=== PATIENT | female | born 1975 | race Caucasian/White ===

== ENCOUNTER 2018-05-08 19:00 | Inpatient (IN) | payer BC, MEDICAID, SELFPAY ==
[2018-05-08] MEDS ORDERED: IPRATROPIUM/ALBUTEROL (0.5MG/3MG) NEB INH ONE (19:10)
[2018-05-08] MEDS ORDERED: ACETAMINOPHEN 500 MG TABLET PO ONE (19:12)
[2018-05-08] MEDS ORDERED: 0.9 % SODIUM CHLORIDE 1000ML 1,000 ML IV ONE (19:14)
--- NOTE | 2018-05-08 19:17 | Emergency Department Record ---
History of Present Illness - General Chief Complaint: Shortness of breath Stated Complaint: KEN/COUGH Time Seen by Provider: 05/08/18 19:08 Source: Patient, Family Mode of Arrival: Ambulatory Limitations: No limitations - History of Present Illness Initial Comments: 42 yo female presents with a cough for about one week. The symptoms worsened starting on Thursday. She is having dyspnea with a non productive cough. Her TMax at home was 103. She feels tired and week. She has a prior history of asthma. She is a non smoker. She states she has not tried her inhalers at home to this point. No vomiting or diarrhea. No rash. MD Complaint: Cough, Shortness of breath -: Days(s) Severity: Moderate Quality: Aching Consistency: Constant Improves With: Nothing Worsens With: Coughing, Exertion Known History Of: Asthma Context: Recent URI Associated Symptoms: Cough Treatments Prior to Arrival: None - Related Data Home Oxygen Therapy: No Home Medications Medication Instructions Recorded Confirmed Last Taken Albuterol Sulfate [Proair Hfa] 1 puff INH ASDIR PRN 05/08/18 05/08/18 Unknown Amitriptyline HCl 150 mg PO DAILY 05/08/18 05/08/18 Unknown Duloxetine HCl [Cymbalta] 30 mg PO DAILY 05/08/18 05/08/18 Unknown Epinephrine [Epipen] 1 each SQ ASDIR PRN 05/08/18 05/08/18 Unknown Fexofenadine HCl [Lesley Allergy] 180 mg PO DAILY 05/08/18 05/08/18 Unknown Mometasone/Formoterol [Dulera 200 13 gm IH BID 05/08/18 05/08/18 Unknown Mcg/5 Mcg Inhaler] Montelukast Sodium [Singulair] 10 mg PO QHS 05/08/18 05/08/18 Unknown Multivitamin [Daily Multiple 1 each PO DAILY 05/08/18 05/08/18 Unknown Vitamin] Omeprazole Magnesium [Prilosec Otc] 20 mg PO DAILY 05/08/18 05/08/18 Unknown Polyethylene Glycol 3350 [Miralax] 17 gm PO DAILY 05/08/18 05/08/18 Unknown Topiramate [Topamax] 100 mg PO BID 05/08/18 05/08/18 Unknown Allergies Allergy/AdvReac Type Severity Reaction Status Date / Time Aminoglycosides Allergy Unknown Unverified 08/01/13 10:05 aspirin Allergy Unknown Unverified 08/01/13 10:05 codeine Allergy Unknown Unverified 08/01/13 10:05 Corticosteroids Allergy Unknown Unverified 08/01/13 10:05 (Glucocorticoids) hydrocortisone Allergy Unknown Unverified 08/01/13 10:05 loperamide Allergy Unknown Unverified 08/01/13 10:05 meperidine Allergy Unknown Unverified 08/01/13 10:05 naloxone Allergy Unknown Unverified 08/01/13 10:05 neomycin Allergy Unknown Unverified 08/01/13 10:05 NSAIDS (Non-Steroidal Allergy Unknown Unverified 08/01/13 10:05 Anti-Inflamma ofloxacin Allergy Unknown Unverified 08/01/13 10:05 Opioids-Meperidine and Allergy Unknown Unverified 08/01/13 10:05 Related polymyxin B Allergy Unknown Unverified 08/01/13 10:05 propoxyphene Allergy Unknown Unverified 08/01/13 10:05 Pyrazoles Allergy Unknown Unverified 08/01/13 10:05 Quinolones Allergy Unknown Unverified 08/01/13 10:05 Salicylates * Allergy Unknown Unverified 08/01/13 10:05 Sulfa (Sulfonamide Allergy Unknown Unverified 08/01/13 10:05 Antibiotics) sulfacetamide Allergy Unknown Unverified 08/01/13 10:05 tramadol Allergy Unknown Unverified 08/01/13 10:05 Review of Systems Constitutional: Reports: Chills, Fever, Malaise, Weakness Eyes: Reports: Eye discharge ENT: Reports: Congestion Respiratory: Reports: Cough, Dyspnea, Wheezes Cardiovascular: Denies: Chest pain, Palpitations, Syncope Endocrine: Reports: Fatigue Gastrointestinal: Denies: Abdominal pain, Diarrhea, Nausea, Vomiting Genitourinary: Denies: Dysuria Musculoskeletal: Denies: Arthralgia, Back pain, Myalgia Skin: Denies: Bruising, Change in color, Rash Neurological: Reports: Weakness. Denies: Headache Psychiatric: Denies: Anxiety Hematological/Lymphatic: Denies: Easy bleeding, Easy bruising, Swollen glands Physical Exam - General General Appearance: Alert, Oriented x3, Cooperative, Other (Appears frail, conversational dyspnea walking in the ED) Limitations: No limitations - Head Head exam: Atraumatic, Normal inspection - Eye Eye exam: Normal appearance, PERRL. negative: Conjunctival injection, Scleral icterus - ENT ENT exam: Normal exam, Mucous membranes moist, Normal orophraynx Ear exam: Normal external inspection Nasal Exam: Normal inspection Mouth exam: Normal external inspection Teeth exam: Normal inspection Throat exam: Normal inspection - Neck Neck exam: Normal inspection - Respiratory Respiratory exam: Accessory muscle use, Decreased breath sounds, Prolonged expiratory, Rhonchi, Wheezes. negative: Normal lung sounds bilaterally, Chest wall tenderness, Respiratory distress - Cardiovascular Cardiovascular Exam: Regular rate, Normal rhythm, Normal heart sounds Peripheral Pulses: 2+: Radial (R), Radial (L) - GI/Abdominal GI/Abdominal exam: Soft. negative: Tenderness - Rectal Rectal exam: Deferred - exam: Deferred - Extremities Extremities exam: Normal inspection - Back Back exam: Denies: CVA tenderness (R), CVA tenderness (L) - Neurological Neurological exam: Alert, Oriented X3 - Psychiatric Psychiatric exam: Normal affect, Normal mood. negative: Agitated, Anxious - Skin Skin exam: Dry, Intact, Normal color, Warm Course - Reevaluation(s) Reevaluation #1: The patient was initially found to have hypoxia, fever, and tachycardia Her room air oxygen level of 80% increased to 94% with 2 liters NC. 05/08/18 19:19 05/08/18 19:43 EKG #1: 19:23 Rate: 106 Rhythm: sinus tach [place]: R Intervals: Qtc 500 ST segments: No acute process Prior: No changes 09/200505/08/18 19:46 The labs were reviewed. CBC: No acute changes CMP: Sodium 132, K is 3.1, HCO3 22, CR 1.3, Lactic 2.8, AST 229, ALT 170, Alk Phos 130 Influenza Negative 05/08/18 19:48 05/08/18 20:57 The chest XR was reviewed. Central bilateral infiltrates. Likely pneumonia. Other concerns includes interstitial edema. Rocephin was given for likely pneumonia. BNP added. Troponin is normal 05/08/18 21:30 The case was discussed with Xin Patterson [employer]ATE [employer] The patient will be admitted on breathing treatments, antibiotics, and recheck labs in the AM Her HR, BP, Temp all improved and stable for admission 05/08/18 23:29 BNP is normal Medical Decision Making - Lab Data Result diagrams: 05/08/18 19:20 05/08/18 19:20 Disposition Disposition: Admit Clinical Impression: Hypoxia Pneumonia Qualifiers: Pneumonia type: due to unspecified organism Laterality: bilateral Lung location : unspecified part of lung Qualified Code(s): J18.9 - Pneumonia, unspecified organism Disposition: Still a Patient at [facility] Decision to Admit: Admit from ER Decision to Admit Date: 05/08/18 Decision to Admit Time: 20:59 Condition: (2) Stable Time of Disposition: 20:59 Quality - Quality Measures Quality Measures: N/A - Blood Pressure Screening Does Patient Have Any of the Following: No Blood Pressure Classification: Normal BP Reading Systolic Measurement: 97 Diastolic Measurement: 60 Screening for High Blood Pressure: < Normal BP, F/U Not Required > [G8783]
[2018-05-08 19:26] LABS: BASO % 0.2 % (0-6); HEMATOCRIT 42.2 % (35.0-47.0); HEMOGLOBIN 13.7 gm/dl (11.6-16.0); LYMPH % 8.6 % (16-45); MEAN CELL VOLUME 87.6 fl (81-97); MEAN CORPUSCULAR HEMOGLOBIN 28.4 pg (27-33); MEAN CORPUSCULAR HGB CONC 32.5 g/dl (32-36); MEAN PLATELET VOLUME 8.5 fl (7.4-10.4); MONO % 3.4 % (0-9); PLATELET COUNT 388 K/uL (130-400); RED BLOOD COUNT 4.82 M/uL (3.80-5.40); RED CELL DISTRIBUTION WIDTH 14.8 % (11.5-14.5); WHITE BLOOD COUNT W/O DIFF 6.4 K/uL (4.2-12.2)
[2018-05-08 19:39] LABS: BLOOD UREA NITROGEN 19 mg/dL (6-20); CREATININE 1.3 mg/dL (0.5-0.9); EST GLOMERULAR FILTRATION RATE 48 mL/min; TOTAL PROTEIN 8.2 g/dL (6.6-8.7)
[2018-05-08 19:42] LABS: LACTIC ACID 2.8 mmol/L (0.5-2.2)
[2018-05-08 19:43] LABS: GLUCOSE,RANDOM 133 mg/dL (74-109)
[2018-05-08 19:44] LABS: ALBUMIN 4.1 g/dL (4.0-5.0); ALKALINE PHOSPHATASE 130 U/L (45-87); ALT/SGPT 170 U/L (<33); AST/SGOT 229 U/L (10.0-35.0); INFLUENZA A NEGATIVE (NEGATIVE); INFLUENZA B NEGATIVE (NEGATIVE)
[2018-05-08 20:01] LABS: ANISOCYTOSIS 1+; PLATELET ESTIMATE NORMAL (NORMAL)
[2018-05-08] MEDS ORDERED: CEFTRIAXONE SODIUM 2 GM in 0.9 % SODIUM CHLORIDE 100ML 100 ML IVPB ONE (20:27)
[2018-05-08] MEDS ORDERED: AZITHROMYCIN 500 MG TABLET PO ONE (20:27)
[2018-05-08] MEDS ORDERED: MONTELUKAST SODIUM 10MG TABLET PO SCH (22:04)
[2018-05-08] MEDS ORDERED: ALBUTEROL SULFATE (0.083%) 2.5 MG/3 ML NEB INH PRN (22:04)
[2018-05-08] MEDS ORDERED: CEFTRIAXONE SODIUM 1 GM in 0.9 % SODIUM CHLORIDE 100ML 100 ML IVPB SCH (22:04)
[2018-05-08] MEDS: SOD CHLOR 0.9% WITH KCL 40MEQ 40 MEQ/1,000 ML IV.SOLN IV ONE (22:25)
[2018-05-08] MEDS: TOPIRAMATE 100MG TABLET PO SCH (23:03)
[2018-05-08] MEDS: BENZONATATE 100 MG CAPSULE PO PRN (23:03)
[2018-05-09] MEDS: ACETAMINOPHEN 500 MG TABLET PO PRN ×3 (00:39→11:01)
[2018-05-09] MEDS: BENZONATATE 100 MG CAPSULE PO PRN ×2 (06:45→11:01)
[2018-05-09] MEDS ORDERED: PANTOPRAZOLE SODIUM 40 MG TABLET PO SCH (07:00)
[2018-05-09 07:44] LABS: HEMATOCRIT 39.3 % (35.0-47.0); HEMOGLOBIN 12.5 gm/dl (11.6-16.0); MEAN CELL VOLUME 88.5 fl (81-97); MEAN CORPUSCULAR HEMOGLOBIN 28.2 pg (27-33); MEAN CORPUSCULAR HGB CONC 31.8 g/dl (32-36); MEAN PLATELET VOLUME 8.6 fl (7.4-10.4); PLATELET COUNT 314 K/uL (130-400); RED BLOOD COUNT 4.44 M/uL (3.80-5.40); RED CELL DISTRIBUTION WIDTH 14.7 % (11.5-14.5); WHITE BLOOD COUNT W/O DIFF 5.7 K/uL (4.2-12.2)
[2018-05-09 07:55] LABS: PLATELET ESTIMATE NORMAL (NORMAL)
[2018-05-09 08:04] LABS: ALBUMIN 3.4 g/dL (4.0-5.0); ALKALINE PHOSPHATASE 104 U/L (45-87); ALT/SGPT 126 U/L (<33); AST/SGOT 166 U/L (10.0-35.0); BLOOD UREA NITROGEN 15 mg/dL (6-20); EST GLOMERULAR FILTRATION RATE > 60 mL/min; GLUCOSE,RANDOM 84 mg/dL (74-109); TOTAL PROTEIN 6.7 g/dL (6.6-8.7)
[2018-05-09] MEDS ORDERED: METHYLPREDNISOLONE PF 125MG/VIAL IM ONE (09:04)
[2018-05-09] MEDS: SOD CHLOR 0.9% WITH KCL 40MEQ 40 MEQ/1,000 ML IV.SOLN IV ONE (09:06)
[2018-05-09] MEDS: CEFTRIAXONE SODIUM 1 GM in 0.9 % SODIUM CHLORIDE 100ML 100 ML IVPB SCH ×2 (09:14→20:55)
[2018-05-09] MEDS: TOPIRAMATE 100MG TABLET PO SCH ×2 (09:14→21:34)
--- NOTE | 2018-05-09 09:56 | History & Physical ---
History of Present Illness - Date of Service Date of Service for History & Physical: 05/09/18 - History of Present Illness Admitting Diagnosis: Pneumonia History of Present Illness: 42 year old female patient presented to ED with cough and fatigue x 1 week. Patient stated symptoms began worsening and she began noting dyspnea with a productive cough. Reports her max temperature at home was 103. Patient has a history of asthma, but has not tried any inhalers at home to help relieve symptoms. Patient denied any abdominal pain, nausea, vomiting, diarrhea, rash, or chest pain. Patient's past medical history includes migraines, asthma, fibromyalgia, and benign tremors. Patient also had a fall in September 2017 that resulted in an intracranial hemorrhage, for which she was treated at [facility], with no resulting deficits. PCP: Dr. Jae Hines ED Course: Room air pulse ox 80%, increased to 94% with 2L oxygen via NC EKG: Rate 106, sinus tach CBC: no acute changes Sodium 132, K 3.1, HCO3 22, Cr 1.3, lactic 2.8, AST 229, ALT 170, Alk phos 130 Troponin negative, BNP unremarkable Blood cultures pending Influenza and strep negative Chest x-ray: Central bilateral infiltrates, likely pneumonia Rocephin 2gm IV, Zithromax 500mg 05/09/18: A&O x 4, resting comfortably in bed. Patient has mild shortness of breath noted with conversation, remains on 2L NC. Will continue with Duoneb, Zithromax, and Rocephin, adding in solumedrol given asthma history. Travel Screening - Travel/Exposure Within Last 30 Days Have you traveled within the last 30 days?: No - Travel/Exposure Within Last Year Have you traveled outside the [place] in the last year?: No - Additonal Travel Details Have you been exposed to anyone with a communicable illness?: No - Travel Symptoms Symptom Screening: Fever (Subjective), Weakness, Fatigue, Lack of Appetite Review of Systems Reviewed: No additional complaints except as noted below Constitutional: Reports: Chills, Fever, Malaise, Weakness Eyes: Reports: Eye discharge ENT: Reports: Congestion Respiratory: Reports: Cough, Dyspnea, Wheezes Cardiovascular: Denies: Chest pain, Palpitations, Syncope Endocrine: Reports: Fatigue Gastrointestinal: Denies: Abdominal pain, Diarrhea, Nausea, Vomiting Genitourinary: Denies: Dysuria Musculoskeletal: Denies: Arthralgia, Back pain, Myalgia Skin: Denies: Bruising, Change in color, Rash Neurological: Reports: Weakness. Denies: Headache Psychiatric: Denies: Anxiety Hematological/Lymphatic: Denies: Easy bleeding, Easy bruising, Swollen glands Past Medical History - SOCIAL HISTORY Smoking Status: Never smoker Alcohol Use: None Drug Use: None - RESPIRATORY Hx Respiratory Disorders: Yes Hx Asthma: Yes - CARDIOVASCULAR Hx Cardio Disorders: Yes Hx Irregular Heartbeat: Yes Hx Palpitations: Yes Comment:: past falls ? 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 - PSYCH Hx Psych Problems: Yes Hx Anxiety: Yes - HEMATOLOGY/ONCOLOGY Hx Hematology/Oncology Disorders: Yes Comment:: hx thrombocythemia Family Medical History Any Significant Family History?: Yes Hx Stroke: Mother H&P Meds/Allergies - Allergies Allergies: Allergies Allergy/AdvReac Type Severity Reaction Status Date / Time Aminoglycosides Allergy Unknown Unverified 08/01/13 10:05 aspirin Allergy Unknown Unverified 08/01/13 10:05 codeine Allergy Unknown Unverified 08/01/13 10:05 Corticosteroids Allergy Unknown Unverified 08/01/13 10:05 (Glucocorticoids) hydrocortisone Allergy Unknown Unverified 08/01/13 10:05 loperamide Allergy Unknown Unverified 08/01/13 10:05 meperidine Allergy Unknown Unverified 08/01/13 10:05 naloxone Allergy Unknown Unverified 08/01/13 10:05 neomycin Allergy Unknown Unverified 08/01/13 10:05 NSAIDS (Non-Steroidal Allergy Unknown Unverified 08/01/13 10:05 Anti-Inflamma ofloxacin Allergy Unknown Unverified 08/01/13 10:05 Opioids-Meperidine and Allergy Unknown Unverified 08/01/13 10:05 Related polymyxin B Allergy Unknown Unverified 08/01/13 10:05 propoxyphene Allergy Unknown Unverified 08/01/13 10:05 Pyrazoles Allergy Unknown Unverified 08/01/13 10:05 Quinolones Allergy Unknown Unverified 08/01/13 10:05 Salicylates * Allergy Unknown Unverified 08/01/13 10:05 Sulfa (Sulfonamide Allergy Unknown Unverified 08/01/13 10:05 Antibiotics) sulfacetamide Allergy Unknown Unverified 08/01/13 10:05 tramadol Allergy Unknown Unverified 08/01/13 10:05 - Home Medications Home Medications Medication Instructions Recorded Confirmed Last Taken Albuterol Sulfate [Proair Hfa] 1 puff INH ASDIR PRN 05/08/18 05/08/18 Unknown Amitriptyline HCl 150 mg PO DAILY 05/08/18 05/08/18 Unknown Duloxetine HCl [Cymbalta] 30 mg PO DAILY 05/08/18 05/08/18 Unknown Epinephrine [Epipen] 1 each SQ ASDIR PRN 05/08/18 05/08/18 Unknown Fexofenadine HCl [Lesley Allergy] 180 mg PO DAILY 05/08/18 05/08/18 Unknown Mometasone/Formoterol [Dulera 200 13 gm IH BID 05/08/18 05/08/18 Unknown Mcg/5 Mcg Inhaler] Montelukast Sodium [Singulair] 10 mg PO QHS 05/08/18 05/08/18 Unknown Multivitamin [Daily Multiple 1 each PO DAILY 05/08/18 05/08/18 Unknown Vitamin] Omeprazole Magnesium [Prilosec Otc] 20 mg PO DAILY 05/08/18 05/08/18 Unknown Polyethylene Glycol 3350 [Miralax] 17 gm PO DAILY 05/08/18 05/08/18 Unknown Topiramate [Topamax] 100 mg PO BID 05/08/18 05/08/18 Unknown - Active Medications Active Medications: Current Medications Acetaminophen (Tylenol 500mg Tab) 1,000 mg PO Q6H PRN PRN Reason: PAIN - MILD(1-4)/FEVER Last Admin: 05/09/18 06:45 Dose: 1,000 mg Albuterol Sulfate (Albuterol Sulfate) 2.5 mg INH RESP.Q4H PRN PRN Reason: DIFFICULTY IN BREATHING Albuterol/Ipratropium (Duoneb) 3 ml INH RESP.Q4H PRN PRN Reason: WHEEZING Amitriptyline HCl (Elavil) 150 mg PO QHS [facility] Azithromycin (Zithromax) 500 mg PO QHS [facility] Benzonatate (Tessalon) 100 mg PO TID PRN PRN Reason: COUGH Last Admin: 05/09/18 06:45 Dose: 100 mg Duloxetine HCl (Cymbalta) 30 mg PO DAILY [facility] Last Admin: 05/09/18 09:14 Dose: 30 mg Enoxaparin Sodium (Lovenox) 40 mg SC DAILY [facility] Last Admin: 05/09/18 09:15 Dose: 40 mg Ceftriaxone Sodium 1 gm/ (Sodium Chloride) 100 mls @ 100 mls/hr IVPB 0900,2100 [facility] Stop: 05/14/18 09:01 Last Admin: 05/09/18 09:14 Dose: 100 mls/hr Methylprednisolone Sodium Succinate (Solu-Medrol) 60 mg IVP Q8HR [facility] Montelukast Sodium (Singulair) 10 mg PO DAILY [facility] Last Admin: 05/09/18 09:15 Dose: 10 mg Pantoprazole Sodium (Protonix) 40 mg PO DAILYAC [facility] Last Admin: 05/09/18 06:42 Dose: Not Given Topiramate (Topiramate) 100 mg PO BID [facility] Last Admin: 05/09/18 09:14 Dose: 100 mg Physical Exam - Vital Signs Vital Signs: Vital Signs - Last 24 Hrs Temp Pulse Pulse Resp BP BP BP 05/09/18 06:30 97.7 F 100 H 17 94/63 05/09/18 02:30 99.5 F 90 28 H 91/60 05/09/18 00:30 99.4 F 05/08/18 22:04 99.0 F 99 H 18 89/57 91/57 05/08/18 20:53 99.6 F 98 H 24 101/67 05/08/18 19:20 106 H 24 05/08/18 19:13 103 H 26 H 124/93 05/08/18 19:08 102.8 F H 109 H 24 97/60 Pulse Ox 05/09/18 06:30 94 L 05/09/18 02:30 93 L 05/09/18 00:30 05/08/18 22:04 97 05/08/18 20:53 96 05/08/18 19:20 93 L 05/08/18 19:13 94 L 05/08/18 19:08 80 L - General General Appearance: Alert, Oriented x3, Cooperative, Other (Appears frail) Limitations: No limitations - Head Head exam: Atraumatic, Normal inspection - Eye Eye exam: Normal appearance, PERRL. negative: Conjunctival injection, Scleral icterus - ENT ENT exam: Normal exam, Mucous membranes moist, Normal orophraynx Ear exam: Normal external inspection Nasal Exam: Normal inspection Mouth exam: Normal external inspection Teeth exam: Normal inspection - Neck Neck exam: Normal inspection - Respiratory Respiratory exam: Decreased breath sounds, Prolonged expiratory, Rhonchi, Wheezes, Other (conversational dyspnea). negative: Normal lung sounds bilaterally, Chest wall tenderness, Respiratory distress - Cardiovascular Cardiovascular Exam: Regular rate, Normal rhythm, Normal heart sounds Peripheral Pulses: 2+: Radial (R), Radial (L), Dorsalis Pedis (R), Dorsalis Pedis (L) - GI/Abdominal GI/Abdominal exam: Soft. negative: Tenderness - Rectal Rectal exam: Deferred - exam: Deferred - Extremities Extremities exam: Normal inspection - Back Back exam: Denies: CVA tenderness (R), CVA tenderness (L) - Neurological Neurological exam: Alert, Oriented X3 - Psychiatric Psychiatric exam: Normal affect, Normal mood. negative: Agitated, Anxious - Skin Skin exam: Dry, Intact, Normal color, Warm Results - Labs Result Diagrams: 05/09/18 07:40 05/09/18 07:43 Labs Last 24 Hours: Laboratory Results - last 24 hr 05/08/18 05/08/18 05/08/18 19:20 19:20 19:20 WBC 6.4 RBC 4.82 Hgb 13.7 Hct 42.2 MCV 87.6 MCH 28.4 MCHC 32.5 RDW 14.8 H Plt Count 388 MPV 8.5 Neutrophils % 82.0 H Band Neutrophils % 11.0 H Lymphocytes % 8.6 L Monocytes % 3.4 Eosinophils % 0.0 Basophils % 0.2 Lymphocytes 4.0 L Monocytes 3.0 Platelet Estimate Normal RBC Morphology Anisocytosis 1+ Sodium 132 L Potassium 3.1 L Chloride 92 L Carbon Dioxide 22.0 Anion Gap 18.0 H BUN 19 Creatinine 1.3 H Estimated GFR 48 Random Glucose 133 H Lactic Acid 2.8 H Calcium 8.7 Total Bilirubin 0.20 AST 229 H ALT 170 H Alkaline Phosphatase 130 H Troponin T < 0.010 NT-Pro-B Natriuret Pep Total Protein 8.2 Albumin 4.1 Globulin 4.1 Albumin/Globulin Ratio 1.0 L Procalcitonin Influenza Type A Ag Negative Influenza Type B Ag Negative Group A Strep Screen 05/08/18 05/08/18 05/09/18 19:20 Unknown 07:35 WBC RBC Hgb Hct MCV MCH MCHC RDW Plt Count MPV Neutrophils % Band Neutrophils % Lymphocytes % Monocytes % Eosinophils % Basophils % Lymphocytes Monocytes Platelet Estimate RBC Morphology Anisocytosis Sodium Potassium Chloride Carbon Dioxide Anion Gap BUN Creatinine Estimated GFR Random Glucose Lactic Acid Calcium Total Bilirubin AST ALT Alkaline Phosphatase Troponin T NT-Pro-B Natriuret Pep 45.89 Total Protein Albumin Globulin Albumin/Globulin Ratio Procalcitonin 0.165 Influenza Type A Ag Influenza Type B Ag Group A Strep Screen Negative 05/09/18 05/09/18 05/09/18 07:40 07:40 07:43 WBC 5.7 RBC 4.44 Hgb 12.5 Hct 39.3 MCV 88.5 MCH 28.2 MCHC 31.8 L RDW 14.7 H Plt Count 314 MPV 8.6 Neutrophils % 84.0 H Band Neutrophils % 4.0 Lymphocytes % Monocytes % Eosinophils % Not Reportable Basophils % Not Reportable Lymphocytes 10.0 L Monocytes 2.0 Platelet Estimate Normal RBC Morphology Normal Anisocytosis Sodium Cancelled 137 Potassium Cancelled 3.7 Chloride Cancelled 99 Carbon Dioxide Cancelled 24.0 Anion Gap Cancelled 14.0 BUN Cancelled 15 Creatinine Cancelled 1.0 H Estimated GFR Cancelled > 60 Random Glucose Cancelled 84 Lactic Acid 1.1 Calcium Cancelled 7.7 L Total Bilirubin Cancelled 0.20 AST Cancelled 166 H ALT Cancelled 126 H Alkaline Phosphatase Cancelled 104 H Troponin T NT-Pro-B Natriuret Pep Total Protein Cancelled 6.7 Albumin Cancelled 3.4 L Globulin Cancelled 3.3 Albumin/Globulin Ratio Cancelled 1.0 L Procalcitonin Influenza Type A Ag Influenza Type B Ag Group A Strep Screen VTE H&P Assessment - Risk for VTE Risk for VTE: Yes Risk Level: Moderate Risk Assessment Date: 05/09/18 Risk Assessment Time: 10:50 VTE Orders Placed or Will Be Placed: Yes Plan - Inpatient Certification Inpatient Certification: Admit to inpatient care: Based on my medical assessment, after consideration of patient's risk factors (age, co-morbidities and patient presenting symptoms and acuity), I expect that this patient will remain in the hospital greater than or equal to two midnights and that the services needed warrant inpatient care because: Patient Risk Factors: [pneumonia, history of asthma, low pulse ox] Estimated length of stay: The patient may reasonably be expected to be discharged or transferred to a hospital within 96 hours after admission to [facility]. Services needed: [IV antibiotics, supplemental oxygen, serial lab monitoring, IV fluids] Post hospital care (if known): [] I certify that my determination is in accordance with my understanding of Medicare requirements for reasonable and necessary inpatient services. 05/09/18 10:50 - Detailed Diagnosis and Plan (1) Pneumonia Current Visit: Yes Status: Acute Qualifiers: Pneumonia type: due to unspecified organism Laterality: bilateral Lung location: unspecified part of lung Qualified Code(s): J18.9 - Pneumonia, unspecified organism Base Code: J18.9 - PNEUMONIA, UNSPECIFIED ORGANISM Comment: 05/09/18: - Patient reports of productive cough, shortness of breath, and fevers - Chest x-ray: bilateral central consolidations likely consistent with pneumonia - WBC 6.4, lactic acid 2.8 in ER, down to 1.1 today, procalcitonin 0.165 - Started on Rocephin 1gm q12h and Zithromax 500mg daily - Supplemental oxygen to keep pulse ox >92% - Duoneb q4h prn - Solumedrol 60mg q8h - 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, CMP, and procalcitonin tomorrow (2) Hypoxia Current Visit: Yes Status: Acute Base Code: R09.02 - HYPOXEMIA Comment: 05/09/18: - Room air pulse ox 80% in ED - 2L supplemental oxygen has been sustaining pulse ox >92% - Continues to have conversational dyspnea - Solumedrol 60mg q8h - Duoneb q4h prn (3) Elevated liver enzymes Current Visit: Yes Status: Acute Base Code: R74.8 - ABNORMAL LEVELS OF OTHER SERUM ENZYMES Comment: 05/09/18: - AST 229, ALT 170, and alk phos 130 in ED - Repeat AST 166, ALT 126, Alk phos 104 - Bili WNL - Patient reports no history of elevated liver enzymes - Will continue with rehydration and serial monitoring of liver enzymes (4) DVT prophylaxis Current Visit: Yes Status: Acute Base Code: [id number] - Comment: 05/09/18: Patient is at moderate risk due to hospitalization, illness, and decreased mobility - Lovenox 40mg SQ daily (5) DNR (do not resuscitate) Current Visit: Yes Status: Acute Base Code: Z66 - DO NOT RESUSCITATE Comment: 05/09/18: Patient is a DNR
[2018-05-09] MEDS ORDERED: MONTELUKAST SODIUM 10MG TABLET PO SCH (10:00)
[2018-05-09] MEDS ORDERED: ENOXAPARIN 40 MG/0.4 ML SYR SC SCH (10:00)
[2018-05-09] MEDS ORDERED: AMITRIPTYLINE 25 MG TABLET PO SCH ×2 (10:00→22:00)
[2018-05-09] MEDS ORDERED: DULOXETINE HCL 30 MG CAPSULE.DR PO SCH (10:00)
[2018-05-09] MEDS: 0.9 % SODIUM CHLORIDE 1000ML 1,000 ML IV SCH ×2 (12:00→20:30)
[2018-05-09] MEDS ORDERED: HYDROCODONE/APAP 5/325MG TABLET PO PRN (13:45)
[2018-05-09] MEDS: METHYLPREDNISOLONE PF 125MG/VIAL IVP SCH ×2 (13:54→21:33)
[2018-05-09] MEDS: IPRATROPIUM/ALBUTEROL (0.5MG/3MG) NEB INH PRN ×2 (14:28→19:50)
[2018-05-09] MEDS ORDERED: GUAIFENESIN/D-METH. 10 ML UDC PO PRN (14:52)
[2018-05-09 20:19] LABS: ARTERIAL BLD GAS O2 SATURATION 86.7 % (95-98); ARTERIAL BLOOD GAS BASE EXCESS -4.4 mmol/L (-2 - 3); ARTERIAL BLOOD GAS HCO3 20.3 mmol/L (18-23); ARTERIAL BLOOD GAS PCO2 38.2 mmHg (35-48); ARTERIAL BLOOD GAS pH 7.35 (7.35-7.45); METHEMOGLOBIN 0.1 % (0.0-1.5); O2 HEMOGLOBIN 85.8 % vol (94-99); TOTAL HEMOGLOBIN 11.8 g/dl (11.6-16)
[2018-05-09 20:20] LABS: BASO % 0.2 % (0-6); HEMOGLOBIN 11.9 gm/dl (11.6-16.0); LYMPH % 8.4 % (16-45); MEAN CELL VOLUME 89.2 fl (81-97); MEAN CORPUSCULAR HEMOGLOBIN 27.9 pg (27-33); MEAN CORPUSCULAR HGB CONC 31.3 g/dl (32-36); MEAN PLATELET VOLUME 8.6 fl (7.4-10.4); MONO % 1.8 % (0-9); PLATELET COUNT 320 K/uL (130-400); RED BLOOD COUNT 4.26 M/uL (3.80-5.40); RED CELL DISTRIBUTION WIDTH 14.9 % (11.5-14.5)
[2018-05-09 20:20] LABS: ALLEN TEST NOT DONE
[2018-05-09 20:25] LABS: BLOOD UREA NITROGEN 11 mg/dL (6-20); CREATININE 0.7 mg/dL (0.5-0.9); EST GLOMERULAR FILTRATION RATE > 60 mL/min
[2018-05-09 20:28] LABS: GLUCOSE,RANDOM 85 mg/dL (74-109)
[2018-05-09 20:51] LABS: PLATELET ESTIMATE NORMAL (NORMAL)
[2018-05-09] MEDS ORDERED: AZITHROMYCIN 500 MG TABLET PO SCH (22:00)
[2018-05-09] MEDS ORDERED: PIPERACILLIN SODIUM/TAZOBACTAM 4.5 GM in 0.9 % SODIUM CHLORIDE 100ML 100 ML IVPB SCH (23:00)
--- NOTE | 2018-05-09 23:12 | Discharge Summary ---
Providers Discharge Summary Date: 05/09/18 Date of admission: 05/08/18 21:48 Expected Date of Discharge: 05/09/18 Attending physician: DARRYL DUFFY Primary care physician: ALEC RAMOS D.O. Physical Exam - Vital Signs Vital Signs: Vital Signs - Last 24 Hrs Temp Pulse Pulse Resp BP BP BP 05/09/18 22:22 99 H 32 H 05/09/18 22:00 97.6 F 91 H 99 H 32 H 111/51 05/09/18 20:25 05/09/18 19:50 100 H 36 H 05/09/18 14:36 94 H 20 05/09/18 14:00 98.8 F 92 H 28 H 96/78 05/09/18 10:40 97.7 F 94/63 05/09/18 09:00 28 H 05/09/18 06:30 97.7 F 100 H 17 94/63 05/09/18 02:30 99.5 F 90 28 H 91/60 05/09/18 00:30 99.4 F Pulse Ox 05/09/18 22:22 90 L 05/09/18 22:00 87 L 05/09/18 20:25 90 L 05/09/18 19:50 05/09/18 14:36 92 L 05/09/18 14:00 92 L 05/09/18 10:40 05/09/18 09:00 05/09/18 06:30 94 L 05/09/18 02:30 93 L 05/09/18 00:30 - General General Appearance: Alert, Moderate distress Limitations: No limitations - Head Head exam: Atraumatic, Normal inspection - Eye Eye exam: Normal appearance, PERRL. negative: Conjunctival injection, Scleral icterus - ENT ENT exam: Normal exam, Mucous membranes moist, Normal orophraynx Ear exam: Normal external inspection Nasal Exam: Normal inspection Mouth exam: Normal external inspection Teeth exam: Normal inspection Throat exam: Normal inspection - Neck Neck exam: Normal inspection - Respiratory Respiratory exam: Decreased breath sounds, Prolonged expiratory, Rhonchi, Wheezes, Other (conversational dyspnea). negative: Normal lung sounds bilaterally, Chest wall tenderness, Respiratory distress - Cardiovascular Cardiovascular Exam: Normal rhythm, Normal heart sounds, Tachycardia Peripheral Pulses: 2+: Radial (R), Radial (L), Dorsalis Pedis (R), Dorsalis Pedis (L) - GI/Abdominal GI/Abdominal exam: Soft. negative: Tenderness - Rectal Rectal exam: Deferred - exam: Deferred - Extremities Extremities exam: Normal inspection - Back Back exam: Denies: CVA tenderness (R), CVA tenderness (L) - Neurological Neurological exam: Alert, Altered - Psychiatric Psychiatric exam: Agitated, Anxious - Skin Skin exam: Dry, Intact, Normal color, Warm Hospitalization - Hospitalization Admission Diagnosis: Pneumonia - Problem List/Discharge Diagnosis (1) Pneumonia Status: Acute Discharge Diagnosis: Pneumonia type: due to unspecified organism Laterality: bilateral Lung location: unspecified part of lung Qualified Code(s): J18.9 - Pneumonia, unspecified organism Base Code: J18.9 - PNEUMONIA, UNSPECIFIED ORGANISM Comment: 05/09/18: - Patient reports of productive cough, shortness of breath, and fevers - Chest x-ray: bilateral central consolidations likely consistent with pneumonia - WBC 6.4, lactic acid 2.8 in ER, down to 1.1 today, procalcitonin 0.165 - Started on Rocephin 1gm q12h and Zithromax 500mg daily. Will DC Rocephin and switch to Zosyn 4.5gm q6h - Supplemental oxygen to keep pulse ox >92% - Duoneb q4h prn - Solumedrol 60mg q8h - 0.9% NS @ 100ml/hr - nurse monitoring (2) Hypoxia Status: Acute Base Code: R09.02 - HYPOXEMIA Comment: 05/09/18: - Patient's pulse ox dropping over the past 6 hours, having increased oxygen. Patient tachypnic, with a pulse ox 88-90% on 15L non-rebreather currently - CTA negative for PE, indicates infiltrates that are consistent with PNA vs edema - Solumedrol 60mg q8h - Duoneb q4h prn (3) Elevated liver enzymes Status: Acute Base Code: R74.8 - ABNORMAL LEVELS OF OTHER SERUM ENZYMES Comment: 05/09/18: - AST 229, ALT 170, and alk phos 130 in ED - Repeat AST 166, ALT 126, Alk phos 104 - Bili WNL - Patient reports no history of elevated liver enzymes - Will continue with rehydration and serial monitoring of liver enzymes (4) DVT prophylaxis Status: Acute Base Code: [id number] - Comment: 05/09/18: Patient is at moderate risk due to hospitalization, illness, and decreased mobility - Lovenox 40mg SQ daily (5) DNR (do not resuscitate) Status: Acute Base Code: Z66 - DO NOT RESUSCITATE Comment: 05/09/18: Patient is a DNR - Hospitalization Course Disposition: Acute Care Hospital Transfer Hospital Course: 42 year old female patient presented to ED with cough and fatigue x 1 week. Patient stated symptoms began worsening and she began noting dyspnea with a productive cough. Reports her max temperature at home was 103. Patient has a history of asthma, but has not tried any inhalers at home to help relieve symptoms. Patient denied any abdominal pain, nausea, vomiting, diarrhea, rash, or chest pain. Patient's past medical history includes migraines, asthma, fibromyalgia, and benign tremors. Patient also had a fall in September 2017 that resulted in an intracranial hemorrhage, for which she was treated at [facility], with no resulting deficits. PCP: Dr. Alec Ramos ED Course: Room air pulse ox 80%, increased to 94% with 2L oxygen via NC EKG: Rate 106, sinus tach CBC: no acute changes Sodium 132, K 3.1, HCO3 22, Cr 1.3, lactic 2.8, AST 229, ALT 170, Alk phos 130 Troponin negative, BNP unremarkable Blood cultures pending Influenza and strep negative Chest x-ray: Central bilateral infiltrates, likely pneumonia Rocephin 2gm IV, Zithromax 500mg 05/09/18: A&O x 4, resting comfortably in bed. Patient has mild shortness of breath noted with conversation, remains on 2L NC. Will continue with Duoneb, Zithromax, and Rocephin, adding in solumedrol given asthma history. UPDATE: Patient has had progressive worsening tachypnea, hypoxia, and new onset confusion. Patient requiring 15L oxygen via NC to maintain oxygen saturation 88 -90% at this time. Repeat labs obtained, troponin negative, WBC 5.7, d-dimer 1.26. CTA chest indicates infiltrates consistent with PNA or edema, negative for PE. Patient will not tolerate bipap at this time due to anxiety. Will continue with zithromax and add Zosyn 4.5gm. Continue with solumedrol and duoneb. Patient to transfer to [facility] for further respiratory support, Dr. Little accepting. Procedures: Imaging and X-Rays 05/08/18 19:09 CHEST 2 VIEWS [RAD] Stat 05/09/18 20:10 CHEST 1 VIEW [RAD] Stat 05/09/18 20:47 CHEST CTA w contrast [CTA] Stat Cardiology Procedures 05/08/18 19:09 Polisher And Buffer NOW EKG NOW 05/08/18 22:04 Polisher And Buffer .Continuous Abnormal Labs: Abnormal Lab Results 05/08/18 05/08/18 05/09/18 Range/Units 19:20 19:20 07:40 MCHC 31.8 L (32-36) g/dl RDW 14.8 H 14.7 H (11.5-14.5) % Neutrophils % 82.0 H 84.0 H (47-80) % Band Neutrophils % 11.0 H (0-5) % Lymphocytes % 8.6 L (16-45) % Lymphocytes 4.0 L 10.0 L (16-45) % D-Dimer (0-0.59) mg/L FEU pO2 (83-108) mmHg Oxyhemoglobin (94-99) % vol ABG O2 Saturation (95-98) % ABG Base Excess (-2 - 3) mmol/L Actual Respiration Rate (10-18) /MIN Sodium 132 L (136-145) mmol/L Potassium 3.1 L (3.4-4.5) mmol/L Chloride 92 L (98-107) mmol/L Anion Gap 18.0 H (7-16) Creatinine 1.3 H (0.5-0.9) mg/dL Random Glucose 133 H (74-109) mg/dL Lactic Acid 2.8 H (0.5-2.2) mmol/L Calcium (8.6-10.0) mg/dL AST 229 H (10.0-35.0) U/L ALT 170 H (<33) U/L Alkaline Phosphatase 130 H (45-87) U/L Albumin (4.0-5.0) g/dL Albumin/Globulin Ratio 1.0 L (1.1-1.8) 05/09/18 05/09/18 05/09/18 Range/Units 07:43 20:00 20:05 MCHC 31.3 L (32-36) g/dl RDW 14.9 H (11.5-14.5) % Neutrophils % 90.0 H (47-80) % Band Neutrophils % (0-5) % Lymphocytes % 8.4 L (16-45) % Lymphocytes 5.0 L (16-45) % D-Dimer (0-0.59) mg/L FEU pO2 51.0 L (83-108) mmHg Oxyhemoglobin 85.8 L (94-99) % vol ABG O2 Saturation 86.7 L (95-98) % ABG Base Excess -4.4 L (-2 - 3) mmol/L Actual Respiration Rate 36.0 H (10-18) /MIN Sodium (136-145) mmol/L Potassium (3.4-4.5) mmol/L Chloride (98-107) mmol/L Anion Gap (7-16) Creatinine 1.0 H (0.5-0.9) mg/dL Random Glucose (74-109) mg/dL Lactic Acid (0.5-2.2) mmol/L Calcium 7.7 L (8.6-10.0) mg/dL AST 166 H (10.0-35.0) U/L ALT 126 H (<33) U/L Alkaline Phosphatase 104 H (45-87) U/L Albumin 3.4 L (4.0-5.0) g/dL Albumin/Globulin Ratio 1.0 L (1.1-1.8) 05/09/18 05/09/18 Range/Units 20:05 20:05 MCHC (32-36) g/dl RDW (11.5-14.5) % Neutrophils % (47-80) % Band Neutrophils % (0-5) % Lymphocytes % (16-45) % Lymphocytes (16-45) % D-Dimer 1.26 H (0-0.59) mg/L FEU pO2 (83-108) mmHg Oxyhemoglobin (94-99) % vol ABG O2 Saturation (95-98) % ABG Base Excess (-2 - 3) mmol/L Actual Respiration Rate (10-18) /MIN Sodium (136-145) mmol/L Potassium (3.4-4.5) mmol/L Chloride (98-107) mmol/L Anion Gap (7-16) Creatinine (0.5-0.9) mg/dL Random Glucose (74-109) mg/dL Lactic Acid (0.5-2.2) mmol/L Calcium 7.9 L (8.6-10.0) mg/dL AST (10.0-35.0) U/L ALT (<33) U/L Alkaline Phosphatase (45-87) U/L Albumin (4.0-5.0) g/dL Albumin/Globulin Ratio (1.1-1.8) Condition at Discharge: (3) Guarded Discharge Medications - Discharge Medications Home Medications: Ambulatory Orders Albuterol Sulfate [Proair Hfa] 1 puff INH ASDIR PRN 05/08/18 [Last Taken Unknown ] Amitriptyline HCl 150 mg PO DAILY 05/08/18 [Last Taken Unknown] Duloxetine HCl [Cymbalta] 30 mg PO DAILY 05/08/18 [Last Taken Unknown] Epinephrine [Epipen] 1 each SQ ASDIR PRN 05/08/18 [Last Taken Unknown] Fexofenadine HCl [Lesley Allergy] 180 mg PO DAILY 05/08/18 [Last Taken Unknown] Mometasone/Formoterol [Dulera 200 Mcg/5 Mcg Inhaler] 13 gm IH BID 05/08/18 [ Last Taken Unknown] Montelukast Sodium [Singulair] 10 mg PO QHS 05/08/18 [Last Taken Unknown] Multivitamin [Daily Multiple Vitamin] 1 each PO DAILY 05/08/18 [Last Taken Unknown] Omeprazole Magnesium [Prilosec Otc] 20 mg PO DAILY 05/08/18 [Last Taken Unknown] Polyethylene Glycol 3350 [Miralax] 17 gm PO DAILY 05/08/18 [Last Taken Unknown] Topiramate [Topamax] 100 mg PO BID 05/08/18 [Last Taken Unknown] Azithromycin [Zithromax] 500 mg PO QHS tab 05/09/18 [Last Taken Unknown] Enoxaparin Sodium [Lovenox] 40 mg SC DAILY syr 05/09/18 [Last Taken Unknown] Ipratropium/Albuterol [Duoneb] 3 ml INH RESP.Q4H PRN ampul.neb 05/09/18 [Last Taken Unknown] Methylprednisolone Sod Succ/Pf [Solu-Medrol] 60 mg IVP Q8HR vial 05/09/18 [ Last Taken Unknown] Discharge Plan - Discharge Instructions Quality Measures - Quality Measures Quality Measures: Documentation of Current Medications in Medical Record, Screening for High Blood Pressure and F/U Documented - Current Medications Quality Measure: Measure #130: Documentation of Current Medications Documentation of Current Medications: <Current Medications Documented/Reviewed> [G8427] - Blood Pressure Screening Quality Measure: Screening for High Blood Pressure and Follow-Up Documented Does Patient Have Any of the Following: No Blood Pressure Classification: Normal BP Reading Systolic Measurement: 94 Diastolic Measurement: 63 Screening for High Blood Pressure: < Normal BP, F/U Not Required > [G8783] - Elder Abuse Suspicion Index EASI Reference Information: Traci HAYES, Shalini C, Sharyn D, Denise Musa.Development and validation of a tool to assist physicians identification of elder abuse: The Elder Abuse Suspicion Index (EASI ). Journal of Elder Abuse and Neglect, 2008; 20 (3): 276-300.
[2018-05-09] MEDS ORDERED: LORAZEPAM 2 MG/ML VIAL IV ONE (23:49)
--- NOTE | 2018-05-10 07:22 | RADIOLOGY REPORT ---
EXAM: CHEST, TWO VIEWS HISTORY: COUGH, FEVER AND HYPOXIA. DIFFICULTY IN BREATHING FOR ONE WEEK. TECHNIQUE: Upright PA and lateral views of the chest were obtained. Comparison: None. FINDINGS: The lung volumes are low. Multifocal air space opacities are scattered in each lung most pronounced centrally consistent with infiltrate, atelectasis, or edema. No costophrenic angle blunting or pneumothorax. The heart is likely normal in size. Evaluation of the vasculature is limited. There is gaseous distention of stomach and multiple bowel loops in the upper abdomen without worrisome air fluid levels. Surgical anchors are noted within the proximal right humerus. There is surgical foreshortening of the distal right clavicle. IMPRESSION: 1. LOW LUNG VOLUMES. MULTIFOCAL AIR SPACE OPACITIES IN EACH LUNG MOST PRONOUNCED CENTRALLY CONSISTENT WITH PNEUMONIA, ATELECTASIS, OR EDEMA. 2. MULTIPLE GAS DISTENDED LOOPS OF BOWEL IN THE UPPER ABDOMEN THOUGH NO WORRISOME AIR FLUID LEVELS ARE SEEN. JOB NUMBER: [id number] [facility]
--- NOTE | 2018-05-10 07:26 | RADIOLOGY REPORT ---
EXAM: PORTABLE CHEST HISTORY: DIFFICULTY IN BREATHING. TECHNIQUE: A single mobile upright view of the chest was obtained. Comparison: Two view chest radiographic examination dated 05/08/18 at 20:39. FINDINGS: The lung volumes remain low. Alveolar opacities in the lungs have progressed appearing more dense with relative sparing of the periphery bilaterally. The heart is likely normal in size. Evaluation of the vasculature is limited. No definite costophrenic angle blunting or pneumothorax. The osseous structures are intact. Surgical anchors are noted in the proximal right humerus. IMPRESSION: WORSENING ALVEOLAR OPACITIES IN EACH LUNG CONSISTENT WITH PNEUMONIA OR EDEMA. LOW LUNG VOLUMES. JOB NUMBER: [id number] [facility]
--- NOTE | 2018-05-10 07:36 | CT ANGIOGRAM REPORT ---
EXAM: CT ANGIOGRAM OF THE CHEST HISTORY: HYPOXIA. ELEVATED D-DIMER. TECHNIQUE: Routine CTA examination of the thorax was performed with 100 ml of Omnipaque 350 utilized. Maximum intensity projection coronal and sagittal reformatted images are generated and reviewed. Comparison: Portable chest dated 05/09/18. FINDINGS: The examination is markedly limited by patient motion artifact. Opacification of the pulmonary arterial system is satisfactory. No large central pulmonary embolus is seen though evaluation of the lumbar and segmental arteries is nondiagnostic. The heart is not grossly enlarged. The thoracic aorta is within aneurysmal dilatation. No definite dissection though evaluation of the aorta is limited by motion artifact. No definite mediastinal or hilar mass/lymphadenopathy. As seen on same day chest radiographic examination, there are alveolar opacities in each lung most pronounced in the upper lobes and mid lungs with associated air bronchograms consistent with pneumonia or edema. No pleural effusion or pneumothorax. No pericardial effusion. The adrenal glands are not enlarged. Post cholecystectomy changes are present. No definite lytic or blastic bone lesion. Surgical anchors are noted in the proximal humerus. IMPRESSION: 1. EVALUATION FOR PULMONARY EMBOLIC DISEASE IS SIGNIFICANTLY LIMITED BY PATIENT MOTION ARTIFACT. NO LARGE CENTRAL PULMONARY EMBOLUS IS IDENTIFIED. NO THORACIC AORTIC ANEURYSM. 2. CONFLUENT ALVEOLAR OPACITY IS AGAIN NOTED IN EACH LUNG MOST PRONOUNCED IN THE MID AND UPPER LUNGS WITH ASSOCIATED AIR BRONCHOGRAMS CONSISTENT WITH PNEUMONIA OR EDEMA. NO PLEURAL OR PERICARDIAL EFFUSION. JOB [facility]BER: [id number] [facility]
== END 2018-05-10 | disposition short-term general hospital (02) | DRG 194 ==
LOC: ER 19:00 → MEDSURG 21:48
PROVIDERS: ADMIT Internal Medicine; ATTEND Internal Medicine
DX: J18.9 Pneumonia, unspecified organism (principal); G90.50 Complex regional pain syndrome I, unspecified; R09.02 Hypoxemia; R74.8 Abnormal levels of other serum enzymes; R00.0 Tachycardia, unspecified; R05 Cough; R53.83 Other fatigue; R53.1 Weakness; D69.6 Thrombocytopenia, unspecified; J45.909 Unspecified asthma, uncomplicated; R25.1 Tremor, unspecified; M79.7 Fibromyalgia; Z66 Do not resuscitate
CPT/HCPCS: 36600; 71045; 71046; 71275; 80048; 80053; 82375; 82803; 83605; 83880; 84145; 84484; 85027; 85379; 87400; 87880; 93005; 93010; 94640; 94761; 96365; 99223; 99285; J1650; J2930; J7030; J7613